=== PATIENT | female | born 1980 | race Caucasian/White ===

== ENCOUNTER 2018-02-12 11:10 | Emergency (ER) | payer OTHER ==
[~2018-02-12] VITALS: Ht 149.9 cm; Wt 77.2 kg
[2018-02-12 11:19] VITALS: BP 147/92
[2018-02-12] MEDS ORDERED: BACITRACIN ZINC OINT 500U/GM, 0.9 GM ONE (11:57)
== END 2018-02-12 12:20 | disposition home or self-care (01) ==
LOC: ED 11:54
DX: S69.91XA Unspecified injury of right wrist, hand and finger(s), initial encounter (principal); W46.0XXA Contact with hypodermic needle, initial encounter; Y93.89 Activity, other specified; Y92.89 Other specified places as the place of occurrence of the external cause; Y99.8 Other external cause status
CPT/HCPCS: 99283